=== PATIENT | male | born 1990 | race Caucasian/White ===

== ENCOUNTER 2024-09-01 10:17 | Emergency (ER) | payer MEDICAID ==
[~2024-09-01] VITALS: Ht 172.7 cm; Wt 82.0 kg
[2024-09-01 10:19] VITALS: O2SAT 99
[2024-09-01] MEDS: TETANUS, DIPHTHERIA, PERTUSSIS VAC/PF 0.5ML (>10YR OLD) IM ONE (12:15)
[2024-09-01] MEDS: ACETAMINOPHEN 500MG TABLET PO ONE (12:16)
[2024-09-01] MEDS ORDERED: IBUP-2028 MT (13:09)
[2024-09-01] MEDS ORDERED: CEPH250C2 MT (13:24)
[2024-09-01 13:32] VITALS: BP 128/89; PULSE 88; RESP 18; TEMP 36.7; O2SAT 99
== END 2024-09-01 13:49 | disposition home or self-care (01) ==
LOC: ER 10:28
DX: S81.812A Laceration without foreign body, left lower leg, initial encounter (principal); E11.9 Type 2 diabetes mellitus without complications; X58.XXXA Exposure to other specified factors, initial encounter; Y93.89 Activity, other specified; Y92.89 Other specified places as the place of occurrence of the external cause; Y99.8 Other external cause status
CPT/HCPCS: 73590; 90715; 90471; 99284; Z7610